=== PATIENT | male | born 1965 | race Caucasian/White ===

== ENCOUNTER 2016-08-24 19:19 | Emergency (ER) | payer BC ==
[2016-08-24 19:47] VITALS: BP 120/66
--- NOTE | 2016-08-24 20:10 | UC ---
Eye Complaint HPI - HPI Summary HPI Summary: Today had bilat eye redness L>R with "sticky" drainage. Has spring allergies that have been active all spring, thinks he may have run out of flonase for a couple days. Today bought more flonase and some zyrtec-D, now sx are mostly resolved. Is worried about waking up with lots of crusting and drainage. - History of Current Complaint Chief Complaint: UCEye Stated Complaint: EYE COMPLAINT Time Seen by Provider: 08/24/16 19:42 Hx Obtained From: Patient Onset/Duration: Gradual Onset, Lasting Hours Timing: Constant Severity Initially: Mild Severity Currently: None Location of Injury: Conjunctiva Character: Dull - itchy Aggravating Factor(s): Nothing Associated Signs And Symptoms: Positive: Drainage (Clear) - Allergies/Home Medications Allergies/Adverse Reactions: Allergies Allergy/AdvReac Type Severity Reaction Status Date / Time Cefdinir Allergy Itching Verified 08/24/16 19:40 Seasonal Allergies Allergy Congestion Uncoded 08/24/16 19:39 Home Medications: Home Medications Amphetamine-Dextroamphetamine [Adderall 15 mg] 1 tab PO TID PRN 08/24/16 [ History Confirmed 08/24/16] Atorvastatin* [Lipitor 40 MG*] 1 tab PO DAILY 08/24/16 [History Confirmed ] BuPROPion XL* [Bupropion XL*] 1 tab PO DAILY 08/24/16 [History Confirmed ] Fenofibrate 1 tab PO DAILY 08/24/16 [History Confirmed 08/24/16] PMH/Surg Hx/FS Hx/Imm Hx Endocrine History Of: Denies: Diabetes, Thyroid Disease Cardiovascular History Of: Denies: Cardiac Disorders, Hypertension Respiratory History Of: Denies: COPD, Asthma GI/ History Of: Denies: Ulcer - Surgical History Surgical History: None - Family History Known Family History: Negative: Blood Disorder - Social History Lives: With Family Alcohol Use: Rare Substance Use Type: None, Prescribed Smoking Status (MU): Former Smoker Have You Smoked in the Last Year: No When Did the Patient Quit Smoking/Using Tobacco: 20 years ago - Immunization History Most Recent Influenza Vaccination: 2016/2016 season Review of Systems Constitutional: Negative Skin: Negative Eyes: Drainage, Eye Redness ENT: Negative Respiratory: Negative Cardiovascular: Negative Gastrointestinal: Negative Genitourinary: Negative Motor: Negative Neurovascular: Negative Musculoskeletal: Negative Neurological: Negative Psychological: Negative All Other Systems Reviewed And Are Negative: Yes Physical Exam Triage Information Reviewed: Yes Appearance: Well-Appearing, Well-Nourished, Obese Vital Signs: Initial Vital Signs Temp 99 F 08/24/16 19:31 Pulse 71 08/24/16 19:31 Resp 18 08/24/16 19:31 BP 120/66 08/24/16 19:31 Pulse Ox 95 08/24/16 19:31 Vital Signs Reviewed: Yes Eye Exam: Normal, Other - PERRL Eyes: Positive: Conjunctiva Clear ENT: Positive: Hearing grossly normal, Pharynx normal, Nasal congestion, TMs normal Dental Exam: Normal Neck exam: Normal Neck: Positive: Supple, Nontender, No Lymphadenopathy Respiratory Exam: Normal Respiratory: Positive: Chest non-tender, Lungs clear, Normal breath sounds, No respiratory distress, No accessory muscle use Cardiovascular Exam: Normal Cardiovascular: Positive: RRR, No Murmur Musculoskeletal Exam: Normal Neurological Exam: Normal Neurological: Positive: Alert Psychological Exam: Normal Skin Exam: Normal Eye Complaint Course/Dx - Differential Dx/Diagnosis Provider Diagnoses: allergic rhinitis. conjunctivitis Discharge - Discharge Plan Condition: Stable Disposition: HOME Prescriptions: Ciprofloxacin 0.3% OPTH.MERCEDES* [Cipro 0.3% Opth*] 2 drop LEFT EYE Q4H #5 ml Patient Education Materials: Conjunctivitis (ED), Allergic Rhinitis (ED) Additional Instructions: As we discussed, I suspect your symptoms are caused by allergies, and your current treatment should be adequate. I have prescribed an antibiotic in case you have excessive drainage or worsening symptoms tomorrow.
== END 2016-08-24 20:15 | disposition home or self-care (01) ==
LOC: UCEAST 19:19
DX: J30.9 Allergic rhinitis, unspecified (principal); H10.9 Unspecified conjunctivitis; Z87.891 Personal history of nicotine dependence
CPT/HCPCS: 99202; G0463